=== PATIENT | female | born 1960 | race Caucasian/White ===

== ENCOUNTER 2021-04-02 19:05 | Emergency (ER) | payer OTHER ==
[2021-04-02 20:28] LABS: HEMOGLOBIN 13.8 gm/dl (12.3-15.3); RED BLOOD COUNT 4.61 M/UL (4.00-5.10); WHITE BLOOD COUNT 13.7 K/UL (4.5-11.0)
[2021-04-02 20:52] LABS: BUN/CREATININE RATIO 24 (0-10)
[2021-04-03] MEDS ORDERED: ASPERCREME LID1 EACH TP (01:25)
== END 2021-04-03 01:40 | disposition home or self-care (01) ==
LOC: ER1 19:05
PROVIDERS: Physician Assistant
DX: S20.211A Contusion of right front wall of thorax, initial encounter (principal); R55 Syncope and collapse; Z79.899 Other long term (current) drug therapy; W22.8XXA Striking against or struck by other objects, initial encounter; Y92.002 Bathroom of unspecified non-institutional (private) residence as the place of occurrence of the external cause
CPT/HCPCS: 70450; 71045; 72125; 80053; 85025; 93005; 96374; 96375; 99284; J2270; J2405; J7030; Q9967